=== PATIENT | female | born 1965 | race Caucasian/White ===

== ENCOUNTER 2017-12-31 14:24 | Outpatient (CLI) | payer OTHER | END 2017-12-31 15:06 | disposition home or self-care (01) | LOC: DCC 14:24 | DX: R10.9 Unspecified abdominal pain (principal); R32 Unspecified urinary incontinence; N81.6 Rectocele; Z90.710 Acquired absence of both cervix and uterus | CPT/HCPCS: G0463 ==

== ENCOUNTER 2018-02-17 10:05 | Day surgery (SDC) | payer OTHER ==
[2018-02-17] MEDS: BUPIVACAINE 0.25% (MPF) 30 ML INJ INJ
[~2018-02-17 10:05] MED LIST: SUCCINYLCHOLINE CHLORIDE 100 MG/5 ML SYG IV
[2018-02-17] MEDS ORDERED: NEOSTIGMINE 3 MG/3 ML SYRINGE (12:21)
[2018-02-17] MEDS ORDERED: GLYCOPYRROLATE 0.4 MG INJ (12:21)
[2018-02-17] MEDS ORDERED: CEFAZOLIN 1 GM INJ (12:21)
[2018-02-17] MEDS ORDERED: MIDAZOLAM 1 MG/ML 2 ML INJ (12:21)
[2018-02-17] MEDS ORDERED: ONDANSETRON 4 MG INJ ×2 (12:21→13:30)
[2018-02-17] MEDS ORDERED: ROCURONIUM 50 MG INJ (12:21)
[2018-02-17] MEDS ORDERED: FENTAnyl 50 MCG/ML VIAL ×2 (12:21→14:20)
[2018-02-17] MEDS ORDERED: PROPOFOL 20 ML (12:21)
[2018-02-17] MEDS ORDERED: BUPIVACAINE 0.25% (MPF) 30 ML INJ ×2 (12:22→13:03)
[2018-02-17] MEDS ORDERED: DEXAMETHASONE 4 MG/ML 1 ML INJ (12:22)
[2018-02-17] MEDS ORDERED: HYDROmorphONE 1 MG/5 ML IV SYRINGE IV (12:30)
[2018-02-17] MEDS ORDERED: DIPHENHYDRAMINE 50 MG INJ IV (12:30)
[2018-02-17] MEDS ORDERED: ALBUTEROL 0.083% (NEB) 2.5 MG/3 ML AMP HHN (12:30)
[2018-02-17] MEDS ORDERED: TRIMETHOBENZAMIDE 100 MG/ML VIAL IM (12:30)
[2018-02-17] MEDS ORDERED: MIDAZOLAM 1 MG/ML 2 ML INJ IV (12:30)
[2018-02-17] MEDS ORDERED: LABETALOL HCL 20MG INJ IV (12:30)
[2018-02-17] MEDS ORDERED: IPRATROPIUM (NEB) 0.5 MG/2.5 ML AMP HHN (12:30)
[2018-02-17] MEDS ORDERED: MEPERIDINE 25 MG INJ IV (12:30)
[2018-02-17] MEDS ORDERED: hydrALAzine 20 MG INJ IV (12:30)
[2018-02-17] MEDS ORDERED: OXYCODONE/ACETAMINOPHEN (5/325) TAB PO (12:30)
[2018-02-17] MEDS ORDERED: EPHEDrine SULFATE 50 MG/5 ML SYG IV (12:30)
[2018-02-17] MEDS ORDERED: FENTAnyl 50 MCG/ML VIAL IV ×2 (12:30)
[2018-02-17] MEDS ORDERED: PHENYLephrine (100 MCG/ML) 5ML SYG (13:29)
[2018-02-17] MEDS ORDERED: SUGAMMADEX SODIUM 200 MG/2 ML VIAL IV (14:00)
[2018-02-17] MEDS ORDERED: HYDROCODONE/APAP (5/325) TAB PO (14:30)
[2018-02-17] MEDS: ONDANSETRON 4 MG INJ IV (14:40)
[2018-02-17] MEDS: HYDROmorphONE 1 MG/5 ML IV SYRINGE IV ×2 (14:40→14:45)
[2018-02-17] MEDS: FENTAnyl 50 MCG/ML VIAL IV (15:07)
[2018-02-17] MEDS: OXYCODONE/ACETAMINOPHEN (5/325) TAB PO (15:53)
== END 2018-02-17 18:10 | disposition home or self-care (01) ==
LOC: SDS 10:05
DX: K80.10 Calculus of gallbladder with chronic cholecystitis without obstruction (principal)
CPT/HCPCS: 47562; 88304

== ENCOUNTER 2018-02-18 10:47 | Emergency (ER) | payer OTHER ==
[2018-02-18 11:48] LABS: ADD MAN DIFF? NO
[2018-02-18 11:51] LABS: WHITE BLOOD COUNT 15.5 10^3/ul (4.8-10.8)
[2018-02-18 11:51] LABS: BASOPHILS % 0.1 % (0.0-2.0); EOSINOPHILS % 0.1 % (0.0-7.0); HEMATOCRIT 34.6 % (37.0-47.0); HEMOGLOBIN 11.1 g/dl (12.0-16.0); LYMPHOCYTES # 1.6 10^3/ul (0.8-2.9); LYMPHOCYTES % 10.4 % (15.0-51.0); MEAN CORPUSCULAR HEMOGLOBIN 28.9 pg (29.0-33.0); MEAN CORPUSCULAR HGB CONC 32.1 g/dl (32.0-37.0); MEAN CORPUSCULAR VOLUME 90.1 fl (82.0-101.0); MEAN PLATELET VOLUME 12.3 fl (7.4-10.4); MONOCYTES % 6.6 % (0.0-11.0); NEUTROPHIL # 12.8 10^3/ul (1.6-7.5); NEUTROPHILS % 82.5 % (39.0-77.0); PLATELET COUNT 211 10^3/UL (140-415); RED BLOOD COUNT 3.84 10^6/ul (4.20-5.40); RED CELL DISTRIBUTION WIDTH 13.6 % (11.5-14.5)
[2018-02-18] MEDS: ONDANSETRON 4 MG INJ IV (11:54)
[2018-02-18] MEDS: SOD CHLORIDE 0.9% 1,000 ML IV (11:54)
[2018-02-18] MEDS: morphine 4 MG/ML VIAL IV (11:54)
[2018-02-18 12:09] LABS: ALANINE AMINOTRANSFERASE 35 IU/L (13-69); ALBUMIN/GLOBULIN RATIO 1.25; ALKALINE PHOSPHATASE 61 IU/L (42-121); ANION GAP 14 (8-16); ASPARTATE AMINO TRANSFERASE 49 IU/L (15-46); BILIRUBIN,INDIRECT 0.6 mg/dl (0-1.1); BILIRUBIN,TOTAL 0.6 mg/dl (0.2-1.3); BLOOD UREA NITROGEN 14 mg/dl (7-20); CALCIUM 9.3 mg/dl (8.4-10.2); CARBON DIOXIDE 23 mmol/L (21-31); CHLORIDE 108 mmol/L (97-110); CREATININE 0.82 mg/dl (0.44-1.00); GLUCOSE 110 mg/dl (70-220); LIPASE 45 U/L (23-300); POTASSIUM 3.8 mmol/L (3.5-5.1); SODIUM 141 mmol/L (135-144); TOTAL PROTEIN 7.2 g/dl (6.1-8.1)
[2018-02-18 12:14] LABS: INR 0.92; PROTIME 12.4 Sec (11.9-14.9)
[2018-02-18 12:52] LABS: ADD UMIC NO; UR ASCORBIC ACID NEGATIVE (NEGATIVE); UR BILIRUBIN (Dip) NEGATIVE (NEGATIVE); UR BLOOD (Dip) NEGATIVE (NEGATIVE); UR CLARITY CLEAR (CLEAR); UR COLOR YELLOW (YELLOW); UR GLUCOSE (Dip) NEGATIVE (NEGATIVE); UR KETONES (Dip) NEGATIVE (NEGATIVE); UR LEUKOCYTE ESTERASE (Dip) NEGATIVE Leu/ul (NEGATIVE); UR NITRITE (Dip) NEGATIVE (NEGATIVE); UR SPECIFIC GRAVITY (Dip) 1.011 (1.003-1.030); UR TOTAL PROTEIN (Dip) NEGATIVE (NEGATIVE); UR UROBILINOGEN (Dip) NEGATIVE (NEGATIVE)
[2018-02-18] MEDS ORDERED: morphine 4 MG/ML VIAL IV (13:28)
[2018-02-18] MEDS: SOD CHLORIDE 0.9% 100 ML (14:22)
[2018-02-18] MEDS: IOHEXOL 300MG/ML 150 ML BTL (14:22)
[2018-02-18] MEDS: FENTAnyl 50 MCG/ML VIAL IV (14:37)
== END 2018-02-18 15:34 | disposition home or self-care (01) ==
LOC: E/R 10:47
DX: R10.84 Generalized abdominal pain (principal); G89.18 Other acute postprocedural pain; D72.829 Elevated white blood cell count, unspecified; D64.9 Anemia, unspecified; R11.0 Nausea; Z90.49 Acquired absence of other specified parts of digestive tract
CPT/HCPCS: 36415; 74177; 80053; 81003; 83690; 84703; 85025; 85610; 96374; 96375; 99285-25